=== PATIENT | male | born 1985 | race Caucasian/White ===

== ENCOUNTER → 2020-10-08 | Emergency (ER) | payer MEDICAID ==
[~2020-10-08] VITALS: Ht 175.3 cm; Wt 72.6 kg
--- NOTE | 2020-10-09 12:46 | EKG ---
[facility] [address] [place], [place] [address] Signed Normal sinus rhythm Normal ECG No previous ECGs available Confirmed by YAMILETH SIMMONS DO ([id number]) on 10/09/2020 12:46:09 PM Electronically Signed By: YAMILETH SIMMONS DO 10/09/20 1246 PATIENT NAME: MARGARITA WALLER Electrocardiogram DATE OF : 81 PHYSICIAN: YAMILETH SIMMONS DO REPORT #: [id number] REPORT IS CONFIDENTIAL AND NOT TO BE RELEASED WITHOUT AUTHORIZATION
== END ==
LOC: ED 15:14
DX: F22 Delusional disorders (principal); F17.200 Nicotine dependence, unspecified, uncomplicated; Z20.822 Contact with and (suspected) exposure to COVID-19
CPT/HCPCS: 80053; 81001; 84443; 85025; 93005; 93010; 99285-25; C9803; G0480; U0003